=== PATIENT | female | born 2000 | race African-American/Black ===

== ENCOUNTER 2022-07-05 15:37 | Emergency (ER) | payer OTHER, SELFPAY ==
[2022-07-05 15:45] VITALS: BP 109/73; PULSE 70; RESP 16; TEMP 36.8; O2SAT 100; BMI 21.2
--- NOTE | 2022-07-05 16:30 | ED_ITS ---
HPI - Skin/Abscess/Foreign Bdy General Chief complaint: Skin/Abscess/Foreign Body Stated complaint: Headache, Itchy skin Time Seen by Provider: 07/05/22 15:57 History of Present Illness HPI narrative: This 22-year-old female comes in with generalized maculopapular pruritic rash that occurred almost a couple days ago. She also has a headache. She states that she felt feverish but did not measure her temperature. She arrives here with normal vital signs. She does not know of any recent exposures but wonders if she ate some food recently that was new and may be causing these symptoms. She denies having any cough, nasal congestion, or shortness of breath. She does have a fine generalized rash over her extremities and trunk. There is no rash in her mouth or on her palms or feet. Related Data Home Medications Medication Instructions Recorded Confirmed drospirenone 3 mg-ethinyl tab 07/05/22 estradiol 0.02 mg tablet (Vestura (28)) Previous Rx's Medication Instructions Recorded triamcinolone acetonide 0.1 % 1 applic topical TID #30 grams 07/05/22 topical cream Allergies Allergy/AdvReac Type Severity Reaction Status Date / Time No Known Drug Allergies Allergy Verified 07/05/22 15:48 Review of Systems Status of ROS: Reports: 10 or more systems reviewed and unremarkable except as noted in History and below Narrative: Constitutional: No fevers, no weight gain or loss. Eyes: No discharge. No vision changes. HENT: No congestion, no sore throat, no ear pain. Cardiovascular: No chest pain, no palpitations. Respiratory: No shortness of breath, no wheezes, no cough. Gastrointestinal: No abdominal pain, no vomiting, no diarrhea. Genitourinary: No dysuria, no hematuria. Musculoskeletal: Normal range of motion. Skin: Pruritic rash in a generalized distribution. Neurological: No dizziness, weakness, sensory change, speech change. Endo/Heme/Allergies: No bruising or bleeding. No polydipsia. Pysch: no suicidality, no anxiety, no insomnia. All other systems reviewed and are negative. Exam Narrative: Exam Narrative: Constitutional: Well-developed, well-nourished, no acute distress. HEENT: Normocephalic, atraumatic. Neck: Normal range of motion. Nontender. Supple. Heart: Regular. No murmurs. Normal rate. Intact distal pulses. Lungs: Clear to auscultation. No chest discomfort. No wheezes, rhonchi, or rales. Abdomen: Normal bowel sounds. Nontender. No rebound tenderness. Genitalia: Deferred. Back: No midline tenderness. Normal range of motion. Extremities: Normal range of motion. No injury. Skin: Intact. Warm. No erythema or pallor. Generalized pruritic macular papular rash. Neurologic: No altered sensation. No weakness. Alert and oriented. Psychiatric: No suicidality. No anxiety or depression. No insomnia. Nursing notes and vitals signs are reviewed. Const: Vital Signs, click to edit/add: Vital Signs - 24 hr 07/05/22 15:45 Temperature 98.2 F Pulse Rate [Pulse Oximeter] 70 Respiratory Rate 16 Blood Pressure [Ri ght Upper Arm] 109/73 Pulse Oximetry 100 Oxygen Delivery Me thod Room Air Course Vital Signs Vital signs: Initial Vital Signs Temperature 98.2 F 07/05/22 15:45 Temperature Source Temporal Artery Scan 07/05/22 15:45 Pulse Rate 70 07/05/22 15:45 Respiratory Rate 16 07/05/22 15:45 Blood Pressure 109/73 07/05/22 15:45 Blood Pressure Mean 85 07/05/22 15:45 Blood Pressure Position Supine 07/05/22 15:45 Pulse Oximetry 100 07/05/22 15:45 Oxygen Delivery Method 07/05/22 15:45 Vital Signs Temperature 98.2 F 07/05/22 15:45 Pulse Rate 70 07/05/22 15:45 Respiratory Rate 16 07/05/22 15:45 Blood Pressure 109/73 07/05/22 15:45 Pulse Oximetry 100 07/05/22 15:45 Oxygen Delivery Method 07/05/22 15:45 Temperature 98.2 F 07/05/22 15:45 Pulse Rate 70 07/05/22 15:45 Respiratory Rate 16 07/05/22 15:45 Blood Pressure 109/73 07/05/22 15:45 Pulse Oximetry 100 07/05/22 15:45 Oxygen Delivery Method 07/05/22 15:45 MDM - Skin/Abscess/Foreign Bdy MDM Narrative Medical decision making narrative: This patient has a allergic reaction of unknown etiology. There are no clear triggers that are suspicious. I did discuss lab and imaging options which the patient declined in a process of shared decision making. She did receive an oral dose of dexamethasone and Benadryl. A prescription for triamcinolone cream is provided. I encouraged her to use [id number] antihistamines as needed and directed. Discharge Plan Discharge Clinical Impression: Viral exanthem, Urticaria Patient Disposition: Home, Self-Care Condition: Unchanged Additional Instructions: Take medication as needed and indicated. Consider using [id number] medicines such as Otilia, Claritin, or Zyrtec for additional relief. Return if worsening. Prescriptions: New triamcinolone acetonide 0.1 % cream 1 applic topical TID Qty: 30 0RF No Action drospirenone-ethinyl estradiol [Vestura (28)] 3-0.02 mg tablet Label Comments: TAKE 1 TABLET BY MOUTH EVERY DAY Follow Up/Referrals: Provider,Not a Local [Primary Care Provider] - Stand Alone Forms: [employer] Info Instructions
[2022-07-05] MEDS: dexAMETHasone 10 MG/ML inj PO (16:39)
[2022-07-05] MEDS: diphenhydrAMINE 25 MG CAPSULE PO (16:39)
== END 2022-07-05 16:47 | disposition home or self-care (01) ==
PROVIDERS: Emergency Provider Emergency Medicine Emergency Medical Services
DX: L50.9 Urticaria, unspecified (principal); B09 Unspecified viral infection characterized by skin and mucous membrane lesions
CPT/HCPCS: 99283; 99284; A9270; J1100

== ENCOUNTER 2022-07-09 22:34 | Emergency (ER) | payer OTHER, SELFPAY ==
[2022-07-09 22:48] VITALS: BP 99/59; PULSE 74; RESP 18; TEMP 36.7; O2SAT 99; BMI 20.8
[2022-07-09 23:41] VITALS: BP 99/59; PULSE 74; RESP 18; TEMP 36.7
--- NOTE | 2022-07-10 00:36 | ED_ITS ---
HPI - General Adult General Date Seen: 07/09/22 Chief complaint: Allergic Reaction Stated complaint: Allergies Time Seen by Provider: 07/09/22 22:48 Source: patient Mode of arrival: ambulatory Limitations: no limitations History of Present Illness HPI narrative: Patient is a 22-year-old female who presents here with a rash, the rash is over her entire torso, it spares her face and her arms, she was seen 2 days ago in this emergency room, was given a shot of dexamethasone and also prescribed triamcinolone cream. Tells me it is no better, she has noted no fevers no chills, is very itchy, she has no recent travel history, she has not been in any hot tubs, or swimming. She is on control pills, but has been on these for some time. The rash is been now for approximately 5-6 days. Related Data Home Medications Medication Instructions Recorded Confirmed drospirenone 3 mg-ethinyl tab 07/05/22 estradiol 0.02 mg tablet (Sudeepura (28)) Previous Rx's Medication Instructions Recorded triamcinolone acetonide 0.1 % 1 applic topical TID #30 grams 07/05/22 topical cream Allergies Allergy/AdvReac Type Severity Reaction Status Date / Time No Known Drug Allergies Allergy Verified 07/09/22 22:50 Review of Systems Status of ROS: Reports: 10 or more systems reviewed and unremarkable except as noted in History and below [facility] Medical History No significant past medical history Surgical History No significant past surgical history Social History Smoking Status: Never smoker Do you use any of these nicotine containing products: None How often do you have a drink containing alcohol: never How often do you have six or more drinks on one occasion: Never AUDIT-C Alcohol total score: 0 Non-prescribed substance use: denies use Exam Narrative: Exam Narrative: I find her in room 4 she is in no apparent distress, she is however if her itching it. On her torso she is noted to have macules, almost seemingly almost like papular in nature also too, a little bit raise, with some redness, they do seemingly follow-up pattern on her back a little bit atypical but very much close to pityriasis rosacea. These are bilateral, none appear infected, they do not appear to be atypical chickenpox either. Const: Vital Signs, click to edit/add: Vital Signs - 24 hr 07/09/22 22:48 07/09/22 23:41 Temperature 98.0 F 98.0 F Pulse Rate [Right Pulse Oximeter] 74 74 Respiratory Rate 18 18 Blood Pressure [Le ft Upper Arm] 99/59 L 99/59 L Pulse Oximetry 99 Oxygen Delivery Me thod Room Air Course Course Hospital Course: I explained to her that I feel this is some sort of viral type etiology, atypical chickenpox is a possibility but given the fact she is not sick it would do nothing for this at this point except watch it. Benadryl will be helpful for the itching, if this is pityriasis atypical nature it will take some time to resolve usually 3-4 weeks, if she wants a more definitive diagnosis I would encourage her to see Dermatology give her a number of options in the [facility]. Return if fevers chills sweats or any sort of sickening type issue. Vital Signs Vital signs: Initial Vital Signs Respiratory Effort Spontaneous 07/09/22 22:47 Respiratory Depth Normal 07/09/22 22:47 Respiratory Pattern 07/09/22 22:47 Vital Signs Temperature 98.0 F 07/09/22 22:48 Pulse Rate 74 07/09/22 22:48 Respiratory Rate 18 07/09/22 22:48 Blood Pressure 99/59 L 07/09/22 22:48 Pulse Oximetry 99 07/09/22 22:48 Oxygen Delivery Method 07/09/22 22:48 Temperature 98.0 F 07/09/22 23:41 Pulse Rate 74 07/09/22 23:41 Respiratory Rate 18 07/09/22 23:41 Blood Pressure 99/59 L 07/09/22 23:41 Pulse Oximetry 99 07/09/22 22:48 Oxygen Delivery Method 07/09/22 22:48 Medical Decision Making [facility] Narrative Medical decision making narrative: Differential diagnosis include but are not limited to contact dermatitis, allergic reaction, shingles, impetigo, seborrheic dermatitis, Arnoldo Joshua syndrome, ITP, meningococcus, HSP Discharge Plan Discharge Clinical Impression: Rash Patient Disposition: Home, Self-Care Condition: Stable Instructions: Acute Rash (ED), Cold Compress or Soak (ED) Additional Instructions: I suspect this may be pityriasis rosacea, atypical definitely, but given the course. Would definitely suggest if going on longer than 1 week to follow-up with dermatology. For the acute each Benadryl 50 mg every 6 hours is suggested, side effect of making you tired. But otherwise this should help the itching. This is [id number] Prescriptions: No Action drospirenone-ethinyl estradiol [Vestura (28)] 3-0.02 mg tablet Label Comments: TAKE 1 TABLET BY MOUTH EVERY DAY triamcinolone acetonide 0.1 % cream 1 applic topical TID Qty: 30 0RF Follow Up/Referrals: Provider,Not a Local [Primary Care Provider] - Stand Alone Forms: [employer] Info Instructions
== END 2022-07-09 23:41 | disposition home or self-care (01) ==
PROVIDERS: Emergency Provider Family Medicine
DX: R21 Rash and other nonspecific skin eruption (principal)
CPT/HCPCS: 99282; 99283

== ENCOUNTER 2022-07-12 20:31 | Emergency (ER) | payer OTHER, SELFPAY ==
[2022-07-12 20:36] VITALS: BP 115/65; PULSE 61; RESP 16; TEMP 36.6; O2SAT 96; BMI 20.8
[2022-07-12 20:51] VITALS: PULSE 65; O2SAT 100
--- NOTE | 2022-07-12 21:15 | ED.SKABFB ---
HPI - Skin/Abscess/Foreign Bdy General Chief complaint: Skin/Abscess/Foreign Body Stated complaint: Rash that has gotten worse since last visit Time Seen by Provider: 07/12/22 20:52 History of Present Illness HPI narrative: This 22-year-old female returns a 3rd time in the past week with intensely pruritic hives. She was seen by me initially and received an oral dose of dexamethasone and a prescription for triamcinolone. She was encouraged to use Otilia but just now today acquired this medicine and has not yet taken it. She returns today because her pruritus has become much more intense. She has generalized maculopapular rash throughout her trunk and extremities. She does not have any fever. There is no known new exposures. She is using soap when bathing and Aquaphor lotion. She states that these are not new items for her. Related Data Home Medications Medication Instructions Recorded Confirmed drospirenone 3 mg-ethinyl tab 07/05/22 estradiol 0.02 mg tablet (Vestura (28)) Previous Rx's Medication Instructions Recorded methylprednisolone 4 mg tablets in See Rx Instructions PO .COMPLEX 07/12/22 a dose pack (Medrol (Bruce)) #21 ea triamcinolone acetonide 0.1 % 1 applic topical BID #454 grams 07/12/22 topical cream Allergies Allergy/AdvReac Type Severity Reaction Status Date / Time No Known Drug Allergies Allergy Verified 07/12/22 20:47 Review of Systems Status of ROS: Reports: 10 or more systems reviewed and unremarkable except as noted in History and below Narrative: Constitutional: No fevers, no weight gain or loss. Eyes: No discharge. No vision changes. HENT: No congestion, no sore throat, no ear pain. Cardiovascular: No chest pain, no palpitations. Respiratory: No shortness of breath, no wheezes, no cough. Gastrointestinal: No abdominal pain, no vomiting, no diarrhea. Genitourinary: No dysuria, no hematuria. Musculoskeletal: Normal range of motion. Skin: Diffuse maculopapular rash on the trunk and extremities which is very pruritic. Neurological: No dizziness, weakness, sensory change, speech change. Endo/Heme/Allergies: No bruising or bleeding. No polydipsia. Pysch: no suicidality, no anxiety, no insomnia. All other systems reviewed and are negative. [facility] Medical History No significant past medical history Surgical History No significant past surgical history Social History Smoking Status: Never smoker Do you use any of these nicotine containing products: None Second hand tobacco smoke exposure: No How often do you have a drink containing alcohol: never How often do you have six or more drinks on one occasion: Never AUDIT-C Alcohol total score: 0 Non-prescribed substance use: denies use Exam Narrative: Exam Narrative: Constitutional: Well-developed, well-nourished, no acute distress. HEENT: Normocephalic, atraumatic. Neck: Normal range of motion. Nontender. Supple. Heart: Intact distal pulses. Lungs: No chest discomfort. No wheezes, rhonchi, or rales. Abdomen: Nontender. Back: Normal range of motion. Extremities: Normal range of motion. No injury. Skin: Intact. Warm. Maculopapular rash on the trunk and extremities. Intense pruritus. There are no vesicles or purulence. Neurologic: No altered sensation. No weakness. Alert and oriented. Psychiatric: No suicidality. No anxiety or depression. No insomnia. Nursing notes and vitals signs are reviewed. Const: Vital Signs, click to edit/add: Vital Signs - 24 hr 07/12/22 20:36 Temperature 97.8 F Pulse Rate [Right Pulse Oximeter] 61 Respiratory Rate 16 Blood Pressure [Le ft Upper Arm] 115/65 Pulse Oximetry 96 Oxygen Delivery Me thod Room Air Course Vital Signs Vital signs: Initial Vital Signs Temperature 97.8 F 07/12/22 20:36 Temperature Source Temporal Artery Scan 07/12/22 20:36 Pulse Rate 61 07/12/22 20:36 Respiratory Rate 16 07/12/22 20:36 Blood Pressure 115/65 07/12/22 20:36 Blood Pressure Mean 81 07/12/22 20:36 Blood Pressure Position Supine 07/12/22 20:36 Pulse Oximetry 96 07/12/22 20:36 Oxygen Delivery Method 07/12/22 20:36 Vital Signs Temperature 97.8 F 07/12/22 20:36 Pulse Rate 61 07/12/22 20:36 Respiratory Rate 16 07/12/22 20:36 Blood Pressure 115/65 07/12/22 20:36 Pulse Oximetry 96 07/12/22 20:36 Oxygen Delivery Method 07/12/22 20:36 Temperature 97.8 F 07/12/22 20:36 Pulse Rate 61 07/12/22 20:36 Respiratory Rate 16 07/12/22 20:36 Blood Pressure 115/65 07/12/22 20:36 Pulse Oximetry 96 07/12/22 20:36 Oxygen Delivery Method 07/12/22 20:36 MDM - Skin/Abscess/Foreign Bdy MDM Narrative Medical decision making narrative: This patient continues to have pruritic rash of unknown cause. I explained we do not have testing that will identify what is causing this. I did review treatment options and reinforced the importance of not using any soaps or lotions. She did receive an oral dose of dexamethasone 10 mg and a intramuscular injection of epinephrine. I did prescribe triamcinolone cream and Medrol Dosepak. She does have Otilia that she can take 3 times a day for 10 days then twice daily for 10 days then daily thereafter as needed if rash is persistent. Discharge Plan Discharge Clinical Impression: Urticaria, Rash Patient Disposition: Home, Self-Care Condition: Stable Additional Instructions: Take medication as prescribed. Follow up with MD or return if worsening symptoms happen. Prescriptions: New triamcinolone acetonide 0.1 % cream 1 applic topical BID Qty: 454 0RF methylprednisolone [Medrol (Bruce)] 4 mg tablets,dose pack See Rx Instructions .ROUTE .COMPLEX Qty: 21 0RF Rx Instructions: orally per package directions No Action drospirenone-ethinyl estradiol [Vestura (28)] 3-0.02 mg tablet Label Comments: TAKE 1 TABLET BY MOUTH EVERY DAY Follow Up/Referrals: Provider,Not a Local [Primary Care Provider] - Stand Alone Forms: [employer] Info Instructions
[2022-07-12] MEDS: EPINEPHrine 0.3 MG PEN IM (21:24)
[2022-07-12] MEDS: dexAMETHasone 10 MG/ML inj PO (21:24)
[2022-07-12 21:40] VITALS: PULSE 108; O2SAT 93
[2022-07-12 21:45] VITALS: PULSE 85; O2SAT 100
--- NOTE | 2022-07-14 19:07 | ED.NURSE ---
Patient called wondering where medications were sent. Looking in chart it appears medications were nt successfully transmitted. Dr. Pedroza resubmitted and patient notified via telephone.
== END 2022-07-12 22:00 | disposition home or self-care (01) ==
PROVIDERS: Emergency Provider Emergency Medicine Emergency Medical Services
DX: L50.9 Urticaria, unspecified (principal)
CPT/HCPCS: 96372; 99283; 99284; J0171; J1100

== ENCOUNTER 2023-04-08 08:14 | Emergency (ER) | payer OTHER, SELFPAY ==
[2023-04-08 08:25] VITALS: BP 103/64; PULSE 84; RESP 18; TEMP 36.7; O2SAT 97; BMI 21.0
--- NOTE | 2023-04-08 08:54 | CRLHL7_ITS ---
For Patients: As a result of the Century Cures Act, medical imaging exams and procedure reports are released immediately into your electronic medical record. You may view this report before your referring provider. If you have questions, please contact your health care provider. INDICATION: R flank/rib pain TECHNIQUE: Chest and right ribs 3 views. COMPARISON: None FINDINGS: Cardiovascular and mediastinum: Heart size and vasculature are normal in caliber and appearance. Mediastinum is within normal limits. Lungs and pleural spaces: Lungs are clear. No sign of infiltrate. No sign of pleural effusion. No pneumothorax. Bones and soft tissues: Detailed oblique images of the right ribs demonstrate no fractures or bone lesions. IMPRESSION: Unremarkable chest and right ribs. Dictated by Jhonny Rodriguez MD @ 04/08/2023 9:56:09 AM (Electronically Signed)
--- NOTE | 2023-04-08 08:55 | ED.GENADULT ---
HPI - General Adult General Chief complaint: Back Injury/Pain Stated complaint: back pain Time Seen by Provider: 04/08/23 08:29 History of Present Illness HPI narrative: This 22-year-old female comes in reporting severe pain in her right flank region. This pain is easily reproducible when palpating in this area or with certain movements. She does not describe any recent injury event or strenuous activity. She states that she has had pain like this on and off over the past year. 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 She does not have any symptoms of dysuria, nausea, vomiting. She does not have a history of kidney stones. She does not report any fevers. Related Data Home Medications Medication Instructions Recorded Confirmed drospirenone 3 mg-ethinyl 1 tab PO DAILY 07/05/22 04/08/23 estradiol 0.02 mg tablet (Vestura (28)) albuterol 90 mcg/actuation aerosol mcg inhalation PRN 04/08/23 inhaler Previous Rx's Medication Instructions Recorded cyclobenzaprine 10 mg tablet 10 mg PO TID #15 tabs 04/08/23 ketorolac 10 mg tablet 10 mg PO Q8H 5 days #15 tabs 04/08/23 Allergies Allergy/AdvReac Type Severity Reaction Status Date / Time No Known Drug Allergies Allergy Verified 04/08/23 08:24 Review of Systems Status of ROS: Reports: 10 or more systems reviewed and unremarkable except as noted in History and below Narrative: Constitutional: No fevers, no weight gain or loss. Eyes: No discharge. No vision changes. HENT: No congestion, no sore throat, no ear pain. Cardiovascular: No chest pain, no palpitations. Respiratory: No shortness of breath, no wheezes, no cough. Gastrointestinal: No abdominal pain, no vomiting, no diarrhea. Genitourinary: No dysuria, no hematuria. Musculoskeletal: Pain in the right lower posterior ribs that is easily reproducible when palpating this area or with any kind of movement. Skin: No rashes, no pruritis. Neurological: No dizziness, weakness, sensory change, speech change. Endo/Heme/Allergies: No bruising or bleeding. No polydipsia. Pysch: no suicidality, no anxiety, no insomnia. All other systems reviewed and are negative. PFSH PFS Medical History No significant past medical history Surgical History No significant past surgical history Social History Smoking Status: Never smoker Do you use any of these nicotine containing products: None Second hand tobacco smoke exposure: No How often do you have a drink containing alcohol: never How often do you have six or more drinks on one occasion: Never AUDIT-C Alcohol total score: 0 Non-prescribed substance use: denies use Exam Narrative: Exam Narrative: Constitutional: Well-developed, well-nourished, no acute distress. HEENT: Normocephalic, atraumatic. Neck: Normal range of motion. Nontender. Supple. Heart: Regular. No murmurs. Normal rate. Intact distal pulses. Lungs: Clear to auscultation. No wheezes, rhonchi, or rales. Abdomen: Normal bowel sounds. Nontender. No rebound tenderness. Genitalia: Deferred. Back: No midline tenderness. Pain in the right lower posterior ribs reproducible with palpation in this area and with any kind of movement. Extremities: Normal range of motion. No injury. Skin: Intact. No rash. Warm. No erythema or pallor. Neurologic: No altered sensation. No weakness. Alert and oriented. Psychiatric: No suicidality. No anxiety or depression. No insomnia. Nursing notes and vitals signs are reviewed. Const: Vital Signs, click to edit/add: Vital Signs - 24 hr 04/08/23 08:25 Temperature 98.1 F Pulse Rate [Pulse Oximeter] 84 Respiratory Rate 18 Blood Pressure [Ri ght Upper Arm] 103/64 Pulse Oximetry 97 Oxygen Delivery Me thod Room Air Course Vital Signs Vital signs: Initial Vital Signs Temperature 98.1 F 04/08/23 08:25 Temperature Source Temporal Artery Scan 04/08/23 08:25 Pulse Rate 84 04/08/23 08:25 Respiratory Rate 18 04/08/23 08:25 Blood Pressure 103/64 04/08/23 08:25 Blood Pressure Mean 77 04/08/23 08:25 Blood Pressure Position Sitting 04/08/23 08:25 Pulse Oximetry 97 04/08/23 08:25 Oxygen Delivery Method Room Air 04/08/23 08:25 Vital Signs Temperature 98.1 F 04/08/23 08:25 Pulse Rate 84 04/08/23 08:25 Respiratory Rate 18 04/08/23 08:25 Blood Pressure 103/64 04/08/23 08:25 Pulse Oximetry 97 04/08/23 08:25 Oxygen Delivery Method Room Air 04/08/23 08:25 Temperature 98.1 F 04/08/23 08:25 Pulse Rate 84 04/08/23 08:25 Respiratory Rate 18 04/08/23 08:25 Blood Pressure 103/64 04/08/23 08:25 Pulse Oximetry 97 04/08/23 08:25 Oxygen Delivery Method Room Air 04/08/23 08:25 Medical Decision Making MDM Narrative Medical decision making narrative: This patient comes in with pain in her right flank region that is typical of muscle strain of the intercostal muscles. Her pain is reproducible with movement and when palpating in this area. I did use bedside ultrasound unofficially to evaluate her right kidney, liver, and gallbladder. These organs all appear normal. A chest x-ray and right rib detail is also obtained which returns with no acute findings by my review. Radiology report is pending. The patient did receive a rib belt and prescriptions for Toradol and Flexeril. I advised her regarding signs and symptoms that would indicate a need for return evaluation. Discharge Plan Discharge Clinical Impression: Thoracic back pain Patient Disposition: Home, Self-Care Condition: Stable Additional Instructions: Wear rib belt as needed. Take medication as needed and directed. Follow up with MD return if worsening. Prescriptions: New cyclobenzaprine 10 mg tablet 10 mg PO TID Qty: 15 0RF ketorolac 10 mg tablet 10 mg PO Q8H 5 Days Qty: 15 0RF No Action drospirenone-ethinyl estradiol [Vestura (28)] 3-0.02 mg tablet 1 tab PO DAILY Patient Comments: TAKE 1 TABLET BY MOUTH EVERY DAY albuterol 90 mcg/actuation aerosol inhalation PRN Follow Up/Referrals: Provider,Not a Local [Primary Care Provider] - Stand Alone Forms: [employer] Info Instructions
== END 2023-04-08 10:11 | disposition home or self-care (01) ==
PROVIDERS: Emergency Provider Emergency Medicine Emergency Medical Services
DX: M54.6 Pain in thoracic spine (principal)
CPT/HCPCS: 71101; 99283; 99284